=== PATIENT | female | born 1995 | race Caucasian/White ===

== ENCOUNTER 2018-09-28 18:00 | Emergency (ER) | payer OTHER ==
[~2018-09-28] VITALS: Wt 78.0 kg
[~2018-09-28 18:00] MED LIST: CEPH-443 PO; PHEN-537 PO
--- NOTE | 2018-09-28 18:10 | EN ---
Date/Time of Note Date/Time of Note DATE: 09/28/18 TIME: 18:09 ER Progress Note 23-year-old female with dysuria and hematuria. Urine dip and test ordered. MARIA LUZ FIERRO PA-C Sep 28, 2018 18:10
[2018-09-28 20:13] VITALS: BP 121/63; PULSE 59; RESP 18
--- NOTE | 2018-09-28 20:15 | ERD ---
ER Documentation Chief Complaint Chief Complaint BACK PAIN WITH DYSURIA HPI This is a 23-year-old female presenting to the emergency department with her boyfriend complaining of intermittent dysuria for the past 2 weeks. She took ibuprofen at home with some relief. She also reports some mild back pain localized to the right mid back. Symptoms are moderate. She denies any fevers, chills, flank pain, nausea, vomiting, diarrhea, or other symptoms at this time. Symptoms are moderate. ROS All systems reviewed and are negative except as per history of present illness. Medications Home Meds Active Scripts Phenazopyridine Hcl* (Pyridium*) 100 Mg Tab, 100 MG PO TID PRN for URINARY PAIN, #8 TAB Prov:YUMIKO ARRIAZA PA-C 09/28/18 Cephalexin* (Keflex*) 500 Mg Capsule, 500 MG PO TID for 7 Days, CAP Prov:YUMIKO ARRIAZA PA-C 09/28/18 Allergies Allergies: Coded Allergies: No Known Allergy (Unverified , 09/28/18) PMhx/Soc Medical and Surgical Hx: pt denies Surgical Hx Hx Miscellaneous Medical Probl: Yes (UTI) Hx Alcohol Use: No Hx Substance Use: No Hx Tobacco Use: No Smoking Status: Never smoker FmHx Family History: No diabetes Physical Exam Vitals Vital Signs Date Temp Pulse Resp B/P (MAP) Pulse Ox O2 O2 Flow FiO2 Time Delivery Rate 09/28/18 98.8 61 18 120/61 99 18:04 (80) Physical Exam Const: No acute distress Head: Atraumatic Eyes: Normal Conjunctiva ENT: Normal External Ears, Nose and Mouth. Neck: Full range of motion. No meningismus. Resp: Clear to auscultation bilaterally Cardio: Regular rate and rhythm, no murmurs Abd: Soft, non tender, non distended. Normal bowel sounds. No rebound tenderness or guarding. No McBurney's point tenderness. Skin: No petechiae or rashes Back: No midline or flank tenderness. No CVA tenderness. Ext: No cyanosis, or edema Neur: Awake and alert Psych: Normal Mood and Affect Results 24 hrs Laboratory Tests Test 09/28/18 19:57 09/28/18 19:59 POC Beta HCG, Qualitative NEGATIVE Bedside Urine pH (LAB) 5.5 Bedside Urine Protein (LAB) Negative Bedside Urine Glucose (UA) Negative Bedside Urine Ketones (LAB) Negative Bedside Urine Blood 2+ Bedside Urine Nitrite (LAB) Positive Bedside Urine Leukocyte Esterase (L Negative Procedures/MDM 23-year-old female presents with evidence of uncomplicated urinary tract infection. The patient's vital signs are stable. She is nontoxic and well- appearing. She is afebrile. At this time I doubt pyelonephritis, sepsis, serious bacterial infection, acute abdomen, or other emergent process. Patient will be discharged home in stable condition with prescription for Pyridium and Keflex and advised to return immediately for any new or concerning symptoms. She understands and agrees with the plan. Departure Diagnosis: Primary Impression: UTI (urinary tract infection) Condition: Fair Patient Instructions: Understanding Urinary Tract Infections (UTIs) Referrals: [facility] YOU HAVE RECEIVED A MEDICAL SCREENING EXAM AND THE RESULTS INDICATE THAT YOU DO NOT HAVE A CONDITION THAT REQUIRES URGENT TREATMENT IN THE EMERGENCY DEPARTMENT. FURTHER EVALUATION AND TREATMENT OF YOUR CONDITION CAN WAIT UNTIL YOU ARE SEEN IN YOUR DOCTORS OFFICE WITHIN THE NEXT 1-2 DAYS. IT IS YOUR RESPONSIBILITY TO MAKE AN APPOINTMENT FOR FOLOW-UP CARE. IF YOU HAVE A PRIMARY DOCTOR --you should call your primary doctor and schedule an appointment IF YOU DO NOT HAVE A PRIMARY DOCTOR YOU CAN CALL OUR PHYSICIAN REFERRAL HOTLINE AT IF YOU CAN NOT AFFORD TO SEE A PHYSICIAN YOU CAN CHOSE FROM THE FOLLOWING [facility] [address] [facility]. [facility] [address] [facility]. [facility] [address] [facility] [facility] [address] [facility]. [facility] [address] [facility]. [facility] [address] Additional Instructions: Call your primary care doctor TOMORROW for an appointment during the next 1-2 days.See the doctor sooner or return here if your condition worsens before your appointment time. YUMIKO ARRIAZA PA-C Sep 28, 2018 20:15
== END 2018-09-28 20:14 | disposition home or self-care (01) ==
LOC: FTE 18:00
DX: N39.0 Urinary tract infection, site not specified (principal)
CPT/HCPCS: 81003; 81025; Z7502; 99283